=== PATIENT | male | born 1960 | race Caucasian/White ===

== ENCOUNTER 2018-02-22 22:52 | Emergency (ER) | payer SELFPAY ==
[~2018-02-22] VITALS: Ht 157.5 cm; Wt 73.0 kg
[2018-02-23] MEDS ORDERED: TETANUS, DIPHTHERIA, PERTUSSIS VAC/PF 0.5ML (>7YR OLD) IM ONE (02:00)
[2018-02-23] MEDS ORDERED: LIDOCAINE HCL/PF 1% 10 MG/ML 5ML VIAL IJ ONE (02:00)
[2018-02-23] MEDS ORDERED: BACITRACIN ZINC OINT UDPKT TOP ONE (02:00)
[2018-02-23] MEDS ORDERED: CEFAZOLIN 1000MG PREMIX 50 ML IV ONE (06:00)
[2018-02-23 07:44] VITALS: BP 125/68
== END 2018-02-23 07:45 | disposition home or self-care (01) ==
LOC: ER 22:52
DX: S01.312A Laceration without foreign body of left ear, initial encounter (principal); F10.20 Alcohol dependence, uncomplicated; Y90.9 Presence of alcohol in blood, level not specified; W07.XXXA Fall from chair, initial encounter; Y93.89 Activity, other specified; Y92.018 Other place in single-family (private) house as the place of occurrence of the external cause
CPT/HCPCS: 12013; 70450; 70486; 90471; 90715; 96365; 99284; J0690; J3490

== ENCOUNTER 2018-02-26 06:12 | Emergency (ER) | payer SELFPAY ==
[~2018-02-26] VITALS: Ht 162.6 cm; Wt 64.0 kg
[2018-02-26] MEDS ORDERED: BACITRACIN ZINC OINT UDPKT TOP ONE (06:45)
[2018-02-26 07:05] VITALS: BP 155/78
== END 2018-02-26 07:20 | disposition home or self-care (01) ==
LOC: ER 06:27
DX: Z48.00 Encounter for change or removal of nonsurgical wound dressing (principal); I10 Essential (primary) hypertension
CPT/HCPCS: 99283

== ENCOUNTER 2018-02-28 09:08 | Emergency (ER) | payer SELFPAY ==
[~2018-02-28] VITALS: Ht 165.1 cm; Wt 77.0 kg
[2018-02-28 09:24] VITALS: BP 99/50
== END 2018-02-28 12:30 | disposition home or self-care (01) ==
LOC: ER 12:24
DX: Z48.00 Encounter for change or removal of nonsurgical wound dressing (principal); I10 Essential (primary) hypertension
CPT/HCPCS: 99281

== ENCOUNTER 2018-03-03 09:56 | Emergency (ER) | payer SELFPAY ==
[~2018-03-03] VITALS: Ht 165.1 cm; Wt 70.0 kg
[2018-03-03 16:05] VITALS: BP 170/80
== END 2018-03-03 16:06 | disposition home or self-care (01) ==
LOC: ER 11:23
DX: H60.12 Cellulitis of left external ear (principal); I10 Essential (primary) hypertension
CPT/HCPCS: 99283

== ENCOUNTER 2018-03-06 06:29 | Emergency (ER) | payer SELFPAY ==
[~2018-03-06] VITALS: Ht 165.1 cm; Wt 80.0 kg
[2018-03-06 08:11] VITALS: BP 150/90
== END 2018-03-06 08:12 | disposition home or self-care (01) ==
LOC: ER 07:22
DX: S01.312D Laceration without foreign body of left ear, subsequent encounter (principal); I10 Essential (primary) hypertension; X58.XXXD Exposure to other specified factors, subsequent encounter
CPT/HCPCS: 99283